=== PATIENT | male | born 1945 | race Caucasian/White ===

== ENCOUNTER 2024-05-22 07:18 | Emergency (ER) | payer MEDICARE, MEDICAID, SELFPAY ==
--- NOTE | ~2024-05-22 | XR_ITS ---
EXAMINATION: XR lumbar spine 2-3V DATE: 05/22/2024 08:34 INDICATION: Fall. TECHNIQUE: 3 views of lumbar spine were obtained. COMPARISON: None. FINDINGS: Bone alignment is normal. There is mild chronic anterior wedging of L1 vertebral body. Ther e is mildly decreased disc height at L1-L2, L2-L3, and L4-L5. There is multilevel severe facet joint osteoarthritis. IMPRESSION: 1. Mild lumbar spondylosis. Reviewed, dictated and finalized at location E. IMPRESSION: 1. Mild lumbar spondylosis.
--- NOTE | ~2024-05-22 | CT_ITS ---
EXAMINATION: CT brain wo con DATE: 05/22/2024 08:30 INDICATION: Headache. Minor head injury. TECHNIQUE: Computed tomography (CT) of the head was performed without intravenous contrast. The mA wa s adjusted according to patient size. Iterative reconstruction technique was employed. The dose-lengt h product was 681.00 mGy-cm. COMPARISON: None FINDINGS: There is no intracranial hemorrhage, acute infarction, or abnormal intracranial mass lesion . There is diffuse brain volume loss. There are scattered areas of low attenuation in the cerebral wh ite matter, which is within normal limits for the patient's age. The ventricles are normal in size. There are likely changes of ocular lens replacement surgeries. There is mucosal thickening in the par anasal sinuses. The mastoid air cells are normal. IMPRESSION: 1. Normal aging brain. Reviewed, dictated and finalized at location E. IMPRESSION: 1. Normal aging brain.
[2024-05-22 07:30] VITALS: BP 147/72; PULSE 72; RESP 16; TEMP 37.1; O2SAT 100
[2024-05-22 08:00] LABS: Basophils Percent Auto 0.1 % (0.2-1.2); Eosinophils Absolute Auto 0.1 K/mm3 (0-0.3); Eosinophils Percent Auto 0.7 % (0-4.4); Hematocrit 35.7 % (42.0-52.0); Hemoglobin 11.6 g/dL (14.0-18.0); Immature Granulocyte Absolute 0.02 K/mm3 (0.00-0.031); Immature Granulocyte Percent A 0.3 % (0-0.5); Lymphocytes Absolute Auto 1.08 K/mm3 (0.9-3.2); Lymphocytes Percent Auto 14.5 % (18.3-44.2); Mean Corpuscular HGB Conc 32.5 g/dl (32-36); Mean Corpuscular Hemoglobin 29.1 pg (26-34); Mean Corpuscular Volume 89.5 fl (80-100); Monocytes Absolute Auto 0.6 K/mm3 (0.1-0.6); Monocytes Percent Auto 8.3 % (2.6-8.5); Neutrophils Absolute Auto 5.7 K/mm3 (1.3-6.7); Neutrophils Percent Auto 76.1 % (45.5-73.1); Platelet Count Result 215 k/mm3 (150-375); Red Blood Count 3.99 M/mm3 (4.6-6.20); Red Cell Distribution Width 13.6 % (11.5-14.5); White Blood Count 7.4 K/mm3 (4.5-10.0)
[2024-05-22 08:01] VITALS: BP 123/60; PULSE 72; RESP 14; TEMP 36.6; O2SAT 99
[2024-05-22 08:17] LABS: Add Urine Microscopic? YES; Appearance Urine Clear (Clear); Bacteria Urine None Seen /hpf; Bilirubin Urine Negative (Negative); Blood Urine Negative (Negative); Color Urine Yellow (Yellow); Glucose Urine UA Negative (Negative); Ketones Urine 2+ mg/dL (Negative); Leukocyte Esterase Ur Negative LEU/UL (Negative); Need Manual Microscopic Reviewed; Nitrate Urine Negative (Negative); Non Pathogenic Casts 0-2; Protein Urine Trace mg/dL (Negative); Specific Grav Ur 1.021 (1.001-1.035); Squamous Epithelial Cell Urine None Seen /hpf (Few); WBC Urine 0-5 /hpf (0-3); pH Urine 8.5 (5.0-9.0)
--- NOTE | 2024-05-22 08:19 | ED.GENADULT ---
HPI - General Adult General Chief complaint: Back Pain/Injury Stated complaint: head/back pain Time Seen by Provider: 05/22/24 07:36 History of Present Illness HPI narrative: Patient is a 79-year-old male with history of dementia who presents to the ER from the [facility] with reports of headache and back pain. No witnessed trauma. Patient is unsure where he has discomfort but reports he does have low back pain when sitting forward. He says he fell and thinks he may have hit his head however he cannot provide any additional history sweats unsure if this actually occurred. There is no obvious deformity lower extremities. No reproducible discomfort lower extremities or upper extremities. No head trauma. Patient has mild discomfort with palpation low back. Related Data Home Medications Medication Instructions Recorded Confirmed acetaminophen 325 mg tablet 650 mg PO Q6H PRN Pain 05/22/24 aspirin 81 mg chewable tablet 81 mg PO QAM 05/22/24 atorvastatin 40 mg tablet 40 mg PO HS 05/22/24 bisacodyl 10 mg rectal suppository 10 mg RECTAL PRN PRN Constipation 05/22/24 carvedilol 12.5 mg tablet 12.5 mg PO BID 05/22/24 cetirizine 10 mg tablet (Zyrtec) 10 mg PO DAILY 05/22/24 coenzyme Q10 100 mg capsule 100 mg PO QAM 05/22/24 folic acid 800 mcg tablet 0.8 mg PO DAILY 05/22/24 lorazepam 0.5 mg tablet 0.5 mg PO BID 05/22/24 lorazepam 0.5 mg tablet 0.5 mg PO BID PRN Anxiety 05/22/24 melatonin 5 mg tablet 5 mg PO HS 05/22/24 omeprazole 20 mg capsule,delayed 20 mg PO QAM 05/22/24 release polyethylene glycol 3350 17 17 g PO QAM 05/22/24 gram/dose oral powder quetiapine 100 mg tablet 100 mg PO QHS 05/22/24 quetiapine 50 mg tablet 50 mg PO QAM 05/22/24 rivastigmine 13.3 mg/24 hour 1 patch transdermal DAILY 05/22/24 transdermal patch sennosides 8.6 mg-docusate sodium 1 tab-cap PO BID 05/22/24 50 mg tablet (Senna-S) sodium phosphates 19 gram-7 118 ml RECTAL PRN PRN Constipation 07/07/24 gram/118 mL enema (Fleet Enema) Allergies Allergy/AdvReac Type Severity Reaction Status Date / Time No Known Allergies Allergy Verified 05/22/24 07:43 Review of Systems Review of Systems: ROS unobtainable: Yes unobtainable due to mental status PMFSH Past Medical History Medical History (Updated 05/22/24 @ 10:50 by Jn Monreal MD) Dementia GERD (gastroesophageal reflux disease) Hyperlipidemia Hypertension Surgical History Surgical History (Updated 05/22/24 @ 08:22 by Jn Monreal MD) Surgical history unknown Exam Narrative: GENERAL: Well-appearing, well-nourished, and in no acute distress. HEAD: Normocephalic, atraumatic. ENT: Mucous membranes moist. NECK: Supple. No midline tenderness. CHEST: Clear to auscultation. No respiratory distress. HEART: Regular rate and rhythm. Normal peripheral pulses. ABDOMEN: Soft, nontender, nondistended. BACK: Mild paraspinal low back tenderness 4 without midline tenderness the T/L spine. No abrasions/bruises. EXTREMITIES: Normal range of motion. No edema. SKIN: Warm, dry, no rash. NEURO: Alert and oriented to self and place.. PSYCH: Normal mood and affect. Course Course Emergency Course: No evidence of acute injury. Discharge back to facility. Vital Signs Vital signs: Vital Signs Temperature 98.7 F 05/22/24 07:30 Pulse Rate 72 05/22/24 07:30 Respiratory Rate 16 05/22/24 07:30 Blood Pressure 147/72 H 05/22/24 07:30 Pulse Oximetry 100 05/22/24 07:30 Oxygen Delivery Room Air 05/22/24 07:30 Temperature 97.9 F 05/22/24 09:01 Pulse Rate 66 05/22/24 09:01 Respiratory Rate 14 05/22/24 09:01 Blood Pressure 123/59 L 05/22/24 09:01 Pulse Oximetry 99 05/22/24 09:01 Oxygen Delivery Room Air 05/22/24 07:30 Medical Decision Making Vital Signs Vital Signs: Vital Signs Temperature 98.7 F 05/22/24 07:30 Pulse Rate 72 05/22/24 07:30 Respiratory Rate 16 05/22/24 07:30 Blood Pressure 1
[2024-05-22 08:34] VITALS: BP 126/63; PULSE 69; RESP 14; O2SAT 98
[2024-05-22 09:01] VITALS: BP 123/59; PULSE 66; RESP 14; TEMP 36.6; O2SAT 99
[2024-05-22 09:14] LABS: Alanine Aminotransferase 14 U/L (6-50); Albumin Level 3.7 g/dL (3.5-5.1); Alkaline Phosphatase 60 U/L (38-126); Anion Gap 7 mmol/L (4-12); Aspartate Amino Transferase 20 U/L (17-59); Bilirubin,Total 1.1 mg/dL (0.2-1.3); Blood Urea Nitrogen 26 mg/dL (9-20); Calcium 8.7 mg/dL (8.4-10.2); Carbon Dioxide 29 mmol/L (22-30); Chloride 105 mmol/L (98-107); Estimated CRCL calculation 65 ml/min; Estimated Glomerular Filt Rate > 60; Glucose 108 mg/dL (65-110); Sodium 141 mmol/L (137-145)
[2024-05-22 09:31] VITALS: BP 118/64; PULSE 72; RESP 14; TEMP 36.6; O2SAT 100
[2024-05-22 10:31] VITALS: BP 133/57; PULSE 67; RESP 12; TEMP 36.4; O2SAT 100
== END 2024-05-22 12:39 | disposition home or self-care (01) ==
PROVIDERS: Emergency Provider Emergency Medicine; PCP Internal Medicine
DX: M54.50 Low back pain, unspecified (principal); F03.90 Unspecified dementia, unspecified severity, without behavioral disturbance, psychotic disturbance, mood disturbance, and anxiety; I10 Essential (primary) hypertension; E78.5 Hyperlipidemia, unspecified; K21.9 Gastro-esophageal reflux disease without esophagitis; Z79.82 Long term (current) use of aspirin; Z79.899 Other long term (current) drug therapy; M47.816 Spondylosis without myelopathy or radiculopathy, lumbar region
CPT/HCPCS: 36415; 70450; 72100; 80053; 81001; 85025; 99284

== ENCOUNTER 2024-09-06 01:35 | Emergency (ER) | payer OTHER, SELFPAY ==
--- NOTE | ~2024-09-06 | CT_ITS ---
EXAMINATION: CT brain wo con DATE: 09/06/2024 02:24 INDICATION: Head injury. TECHNIQUE: Computed tomography (CT) of the head was performed without intravenous contrast. The mA wa s adjusted according to patient size. Iterative reconstruction technique was employed. The dose-lengt h product was 1740.33 mGy-cm. COMPARISON: Head CT 05/22/2024 FINDINGS: There is no intracranial hemorrhage, acute infarction, or abnormal intracranial mass lesion . There are scattered areas of low attenuation in the cerebral white matter, which is within normal l imits for the patient's age. The ventricles are normal in size. There are likely changes of ocular le ns replacement surgeries. There is mucosal thickening in the paranasal sinuses. The mastoid air cells are normal. There is cerumen in the external auditory canals. IMPRESSION: 1. Normal aging brain. Reviewed, dictated and finalized at location A. IMPRESSION: 1. Normal aging brain.
[2024-09-06 01:36] VITALS: BP 129/97; PULSE 78; RESP 14; TEMP 36.3; O2SAT 97
[2024-09-06 01:51] VITALS: PULSE 78; RESP 18
[2024-09-06 02:23] VITALS: PULSE 77; RESP 17; O2SAT 100
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
[2024-09-06 02:42] VITALS: PULSE 72; RESP 13
[2024-09-06 02:45] VITALS: PULSE 74; RESP 13
[2024-09-06 03:13] VITALS: BP 127/76; PULSE 76; RESP 16; TEMP 36.6; O2SAT 98
--- NOTE | 2024-09-06 03:52 | PC.NURSE ---
report to [facility]
== END 2024-09-06 03:52 ==
LOC: ANHED 02:42
PROVIDERS: Emergency Provider Emergency Medicine; PCP Internal Medicine
DX: S09.90XA Unspecified injury of head, initial encounter (principal); F03.90 Unspecified dementia, unspecified severity, without behavioral disturbance, psychotic disturbance, mood disturbance, and anxiety; I10 Essential (primary) hypertension; E78.5 Hyperlipidemia, unspecified; K21.9 Gastro-esophageal reflux disease without esophagitis; W19.XXXA Unspecified fall, initial encounter
CPT/HCPCS: 70450; 99284

== ENCOUNTER 2024-11-11 10:30 | Emergency (ER) | payer OTHER, SELFPAY ==
--- NOTE | ~2024-11-11 | CT_ITS ---
EXAMINATION: CT brain wo con DATE: 11/11/2024 13:16 INDICATION: Head injury. TECHNIQUE: Computed tomography (CT) of the head was performed without intravenous contrast. The mA wa s adjusted according to patient size. Iterative reconstruction technique was employed. The dose-lengt h product was 681.00 mGy-cm. COMPARISON: Head CT 09/06/2024 FINDINGS: There are scattered areas of low attenuation in the cerebral white matter, which is within normal limits for the patient's age. There is no intracranial hemorrhage, acute infarction, or abnorm al intracranial mass lesion. The ventricles are normal in size. There is mild mucosal thickening in t he paranasal sinuses. There are likely changes of ocular lens replacement surgeries. The mastoid air cells are normal. There is cerumen in the external auditory canals. There is right posterior scalp so ft tissue swelling. IMPRESSION: 1. Normal aging brain. Reviewed, dictated and finalized at location A. ORESIST PRINTER IMPRESSION: 1. Normal aging brain.
--- NOTE | ~2024-11-11 | CT_ITS ---
EXAMINATION: CT cervical spine wo con DATE: 11/11/2024 13:17 INDICATION: Neck injury. TECHNIQUE: Computed tomography (CT) of the cervical spine was performed without intravenous contrast. Automated exposure control and iterative reconstruction technique were employed. The dose-length pro duct was 417.26 mGy-cm. COMPARISON: None FINDINGS: There is 10 degrees levoscoliosis of cervical spine. There is 2 mm retrolisthesis of C4 on C5 and C5 on C6. Vertebral body heights are normal. There is a hemangioma in T2 vertebral body. There is mildly decreased disc height at C2-C3, severely decreased disc height from C3-C4 through C5-C6, a nd mildly decreased disc height at C6-C7. The osseous central spinal canal developmentally small. The following disc levels are specifically discussed: C2-C3: There is mild right and severe left uncovertebral joint osteoarthritis. There is mild bilatera l facet joint osteoarthritis. There is mild left neural foraminal stenosis. There is mild central can al stenosis. C3-C4: There is severe bilateral uncovertebral joint osteoarthritis. There is moderate right and mild left facet joint osteoarthritis. There is mild bilateral neural foraminal stenosis. There is mild ce ntral canal stenosis. C4-C5: There is severe bilateral uncovertebral joint osteoarthritis. There is moderate right and mild left facet joint osteoarthritis. There is moderate bilateral neural foraminal stenosis. There is mod erate central canal stenosis. C5-C6: There is severe bilateral uncovertebral joint osteoarthritis. There is moderate bilateral face t joint osteoarthritis. There is moderate bilateral neural foraminal stenosis. There is moderate cent ral canal stenosis. C6-C7: There is severe right and mild left uncovertebral joint osteoarthritis. There is severe bilate ral facet joint osteoarthritis. There is moderate right and mild left neural foraminal stenosis. Ther e is mild central canal stenosis. C7-T1: There is no uncovertebral joint osteoarthritis. There is severe bilateral facet joint osteoart hritis. There is mild bilateral neural foraminal stenosis. There is mild central canal stenosis. IMPRESSION: 1. No fracture. 2. Severe cervical spondylosis. Reviewed, dictated and finalized at location A. NETWORK ENGINEER
--- NOTE | ~2024-11-11 | CT_ITS ---
EXAMINATION: CT thoracic lumbar wo con DATE: 11/11/2024 13:20 INDICATION: Back injury. TECHNIQUE: Computed tomography (CT) of the thoracic and lumbar spine was performed without intravenou s contrast. Automated exposure control and iterative reconstruction technique were employed. The dose -length product was 1481.43 mGy-cm. COMPARISON: None FINDINGS: CT THORACIC SPINE: There is a 4 mm nodule in right lung upper lobe, likely benign. Calcified mediasti nal lymph nodes are consistent with old granulomatous disease. There is kyphosis of thoracic spine. T here is 11 degrees dextroscoliosis of thoracic spine. There is mild chronic anterior wedging of T6-T1 2 vertebral bodies. There is a hemangioma in T2 vertebral body. There are bridging endplate osteophyt es from T4 to T12, consistent with diffuse idiopathic skeletal hyperostosis (DISH). There is mildly d ecreased disc height at T1-T2 and moderately decreased disc height at T3-T4. There is moderately to m oderately decreased disc height from T4-T5 through T11-T12. There is multilevel mild facet joint oste oarthritis. On the right, there is mild neural foraminal stenosis at T3-T4. No central canal stenosis . CT LUMBAR SPINE: Calcifications in the spleen are consistent with old granulomatous disease. There is 3 mm anterolisthesis of L4 on L5. There is mild chronic anterior wedging of L1 vertebral body. There is moderately decreased disc height at L1-L2 and L2-L3 and mildly decreased disc height at L3-L4 and L4-L5. The following disc levels are specifically discussed: L1-L2: The disc is bulging. There is mild bilateral facet joint osteoarthritis. There is mild bilater al neural foraminal stenosis. There is mild central canal stenosis. L2-L3: The disc is bulging. There is moderate bilateral facet joint osteoarthritis. There is moderate bilateral neural foraminal stenosis. There is mild central canal stenosis. L3-L4: The disc is bulging. There is severe right and moderate left facet joint osteoarthritis. There is mild bilateral neural foraminal stenosis. There is mild central canal stenosis. L4-L5: The disc is bulging. There is severe bilateral facet joint osteoarthritis. There is moderate r ight and mild left neural foraminal stenosis. There is mild central canal stenosis. L5-S1: The disc is bulging. There is severe bilateral facet joint osteoarthritis. There is mild bilat eral neural foraminal stenosis. There is mild central canal stenosis. IMPRESSION: 1. No fracture. 2. Moderate thoracic and lumbar spondylosis. 3. DISH. 4. Thoracic dextroscoliosis and kyphosis. Reviewed, dictated and finalized at location A. SCIENCE TECHNICIAN
--- NOTE | ~2024-11-11 | CT_ITS ---
EXAMINATION: CT abdomen pelvis w con DATE: 11/11/2024 13:26 INDICATION: Abdominal pain. TECHNIQUE: Computed tomography (CT) of the abdomen and pelvis was performed with 100 mL Omnipaque 350 intravenous contrast. Automated exposure control and iterative reconstruction technique were employe d. The dose-length product was 630.94 mGy-cm. COMPARISON: None. FINDINGS: The visualized portions of the lung bases demonstrate mild atelectasis. A calcified right l mary nodule is consistent with old granulomatous disease. No pleural effusion. The heart size is matilde l. There are coronary artery calcifications. There are calcifications of the aortic valve. No pericar dial effusion. There is a small sliding hiatal hernia. The liver is normal. The gallbladder is absent . Calcifications in the spleen are consistent with old granulomatous disease. The pancreas and adrena l glands are normal. There are cysts in the kidneys measuring up to 17 mm on the left. The prostate i s mildly enlarged. There are no dilated loops of bowel. The appendix is not visualized. There is calc ified atherosclerosis of the aorta and many of the other arteries. There are no pathologically enlarg ed lymph nodes. There is no free intraperitoneal fluid. There is a left inguinal hernia containing fa t. There is moderate lumbar spondylosis. IMPRESSION: 1. Left inguinal hernia containing fat. 2. Small sliding hiatal hernia. Reviewed, dictated and finalized at location A. [facility] [facility]
[2024-11-11 11:00] VITALS: BP 169/82; PULSE 70; RESP 16; TEMP 36.5; O2SAT 100
[2024-11-11 11:15] VITALS: BP 147/92; PULSE 78; RESP 22; O2SAT 100
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
[2024-11-11 12:46] VITALS: BP 156/62; PULSE 72; RESP 17; O2SAT 99
[2024-11-11 13:20] LABS: Estimated CRCL calculation 58 ml/min; Estimated Glomerular Filt Rate > 60
[2024-11-11 15:43] VITALS: BP 179/84; PULSE 72; RESP 13; O2SAT 100
--- NOTE | 2024-11-11 15:56 | PC.NURSE ---
gave report and update to JOSE CARLOS Moreno @[phone]. all questions answered.
[2024-11-11 17:30] VITALS: BP 170/92; PULSE 74; RESP 15; O2SAT 99
[2024-11-11 19:31] VITALS: BP 168/89; PULSE 71; RESP 19; TEMP 36.6; O2SAT 98
== END 2024-11-11 19:30 ==
PROVIDERS: Emergency Provider Emergency Medicine; PCP Internal Medicine
DX: R10.9 Unspecified abdominal pain (principal); S09.90XA Unspecified injury of head, initial encounter; W03.XXXA Other fall on same level due to collision with another person, initial encounter; Z79.82 Long term (current) use of aspirin; F03.90 Unspecified dementia, unspecified severity, without behavioral disturbance, psychotic disturbance, mood disturbance, and anxiety; K21.9 Gastro-esophageal reflux disease without esophagitis; E78.5 Hyperlipidemia, unspecified; I10 Essential (primary) hypertension
CPT/HCPCS: 70450; 72125; 72128; 72131; 74177; 99284; Q9967

== ENCOUNTER 2025-05-01 02:21 | Emergency (ER) | payer MEDICARE, MEDICAID, SELFPAY ==
--- NOTE | ~2025-05-01 | XR_ITS ---
Left elbow Technique: AP, oblique, and lateral views were obtained. Clinical History: Pain Findings: No acute fracture or dislocation is seen. Osseous alignment is anatomic. Joint spaces are p reserved. There is no displacement of the fat pads, and soft tissues are unremarkable. Impression: Unremarkable radiographs. Reviewed, dictated and finalized at location . Impression: Unremarkable radiographs.
--- NOTE | ~2025-05-01 | CT_ITS ---
CT head without contrast Indication: Status post fall COMPARISON: 11/11/2024 Technique: Serial scans were obtained through the brain without the administration of contrast. Dose reduction technique was used on this scan by utilizing automated exposure control and iterative recon struction technique. The dose-length product (DLP) was 681.00 mGy-cm. Findings: There is no evidence of intracranial hemorrhage, mass lesion, or acute infarct. The ventri cles and subarachnoid spaces are dilated, consistent with moderate atrophy. There is no evidence of edema, mass effect or midline shift. The visualized paranasal sinuses and mastoid air cells are cl ear. Impression: No intracranial hemorrhage, mass, or acute infarct. Moderate generalized atrophy. Reviewed, dictated and finalized at location . Impression: No intracranial hemorrhage, mass, or acute infarct. Moderate generalized atrophy.
--- NOTE | ~2025-05-01 | CT_ITS ---
Noncontrast CT scan of the cervical spine Technique: Multiple contiguous axial [address] images of the cervical spine were obtained and rec onstructed in 2D sagittal and coronal planes on the acquisition scanner. Dose reduction technique was used on this scan by utilizing automated exposure control, adjustment of the mA and/or kV according to patient size. The dose-length product (DLP) was 221.90 mGy-cm. Clinical History: Pain COMPARISON: 11/11/2024 Findings: No fractures or dislocations. Stable osseous alignment from prior exam. There is moderate degenerative distended and C3-C6. Stable facet joint degenerative changes in the cervical spine. Ther e is bilateral neural foraminal narrowing at C3-C4, C4-C5, C5-C6, with right neural foraminal narrowi ng at C6-C7. No prevertebral soft tissue swelling. Impression: No fracture or subluxation of the cervical spine. Stable degenerative spondylosis, as above. Reviewed, dictated and finalized at [facility]. Impression: No fracture or subluxation of the cervical spine. Stable degenerative spondylosis, as above.
[2025-05-01 02:21] VITALS: BP 143/56; PULSE 68; RESP 16; TEMP 36.7; O2SAT 99
--- NOTE | 2025-05-01 03:55 | ED.FALL ---
HPI - Fall General Chief Complaint: Fall Stated Complaint: fall Time Seen by Provider: 05/01/25 02:27 History of Present Illness HPI Narrative: Patient presents here after an unwitnessed fall; he denies any complaints, he was found have a skin tear to the left elbow. Related Data Home Medications ?Medication ?Instructions ?Recorded ?Confirmed ?Last Taken ?Type acetaminophen 325 mg tablet 650 mg PO Q6H PRN Pain 05/22/24 Unknown History aspirin 81 mg chewable tablet 81 mg PO QAM 05/22/24 Unknown History atorvastatin 40 mg tablet 40 mg PO HS 05/22/24 Unknown History bisacodyl 10 mg rectal suppository 10 mg RECTAL PRN PRN Constipation 05/22/24 Unknown History carvedilol 12.5 mg tablet 12.5 mg PO BID 05/22/24 Unknown History cetirizine 10 mg tablet (Zyrtec) 10 mg PO DAILY 05/22/24 Unknown History coenzyme Q10 100 mg capsule 100 mg PO QAM 05/22/24 Unknown History folic acid 800 mcg tablet 0.8 mg PO DAILY 05/22/24 Unknown History lorazepam 0.5 mg tablet 0.5 mg PO BID 05/22/24 Unknown History lorazepam 0.5 mg tablet 0.5 mg PO BID PRN Anxiety 05/22/24 Unknown History melatonin 5 mg tablet 5 mg PO HS 05/22/24 Unknown History omeprazole 20 mg capsule,delayed 20 mg PO QAM 05/22/24 Unknown History release polyethylene glycol 3350 17 17 g PO QAM 05/22/24 Unknown History gram/dose oral powder quetiapine 100 mg tablet 100 mg PO QHS 05/22/24 Unknown History quetiapine 50 mg tablet 50 mg PO QAM 05/22/24 Unknown History rivastigmine 13.3 mg/24 hour 1 patch transdermal DAILY 05/22/24 Unknown History transdermal patch sennosides 8.6 mg-docusate sodium 1 tab-cap PO BID 05/22/24 Unknown History 50 mg tablet (Senna-S) sodium phosphates 19 gram-7 118 ml RECTAL PRN PRN Constipation 05/22/24 Unknown History gram/118 mL enema (Fleet Enema) Allergies Allergy/AdvReac Type Severity Reaction Status Date / Time No Known Allergies Allergy Verified 05/01/25 02:36 Review of Systems Review of Systems: All systems reviewed & are unremarkable except as noted in HPI and below PMFSH Past Medical History Medical History Dementia GERD (gastroesophageal reflux disease) Hyperlipidemia Hypertension Surgical History Surgical History Surgical history unknown Exam Narrative: EXAMINATION OF ORGAN SYSTEMS/BODY AREAS: Constitutional: Vital signs per nursing GENERAL:[No acute distress, non-toxic appearing.] HEAD: Normal with no signs of head trauma. EYES: EOMI, conjunctiva normal ENT: Hearing grossly intact LUNGS: Nonlabored breathing. HEART: [Regular rate and rhythm] ABD: [Soft], [nontender to palpation] EXT: Normal range of motion SKIN: Contusion to left elbow with 1 cm skin tear NEURO: [Alert. No gross focal sensory or strength deficits.] PSYCH: Normal affect Course Vital Signs Vital signs: Vital Signs Temperature 98.1 F 05/01/25 02:21 Pulse Rate 68 05/01/25 02:21 Respiratory Rate 16 05/01/25 02:21 Blood Pressure 143/56 H 05/01/25 02:21 Pulse Oximetry 99 05/01/25 02:21 Oxygen Delivery Room Air 05/01/25 02:21 Temperature 98.1 F 05/01/25 02:21 Pulse Rate 68 05/01/25 02:21 Respiratory Rate 16 05/01/25 02:21 Blood Pressure 143/56 H 05/01/25 02:21 Pulse Oximetry 99 05/01/25 02:21 Oxygen Delivery Room Air 05/01/25 02:21 MDM - Fall MDM Narrative Medical decision making narrative: Patient presents with fall, was found on the ground, he cannot tell me anything more about this, but he denies any complaints. I did palpate all extremities and did not note any obvious deformity or tenderness, though he does have a contusion to his left elbow with a skin tear. I did clean the cut and applied a bandage, of 0 x-ray on my independent interpretation does not show any obvious fracture, CT head and C-spine thankfully are unremarkable for acute abnormality. Patient tetanus is updated, at this time he became extremely belligerent and uncooperative, told multiple people that he was going to beat our ass and called us butch blanco I did see that he is prescribed quetiapine, and do feel he would benefit from a dose of Zyprexa here to help calm him down. On re-evaluation he does appear more comfortable. Will be discharged in stable condition. Discharge Plan Discharge Clinical Impression: Fall, Contusion of left lower arm Patient Disposition: [place] Nursing Home/Asst Living Condition: Stable Instructions: Fall Prevention for Older Adults (ED), Contusion in Adults (ED) Additional Instructions: Please follow up with your doctor; you can always return for any further issues. Patient Language: Japanese Prescriptions: No Action atorvastatin 40 mg Tablet 40 mg PO HS acetaminophen 325 mg Tablet 650 mg PO Q6H PRN (Reason: Pain) carvedilol 12.5 mg tablet 12.5 mg PO BID quetiapine 100 mg tablet 100 mg PO QHS lorazepam 0.5 mg tablet 0.5 mg PO BID lorazepam 0.5 mg tablet 0.5 mg PO BID PRN (Reason: Anxiety) bisacodyl 10 mg suppository 10 mg RECTAL PRN PRN (Reason: Constipation) Fleet Enema 19-7 gram/118 mL enema 118 ml RECTAL PRN PRN (Reason: Constipation) omeprazole 20 mg Capsule,Delayed Release(Dr/Ec) 20 mg PO QAM aspirin 81 mg tablet,chewable 81 mg PO QAM polyethylene glycol 3350 17 gram/dose powder 17 g PO QAM folic acid 800 mcg Tablet 0.8 mg PO DAILY coenzyme Q10 100 mg capsule 100 mg PO QAM quetiapine 50 mg tablet 50 mg PO QAM melatonin 5 mg Tablet 5 mg PO HS rivastigmine 13.3 mg/24 hour Patch 24 Hour 1 patch TRANSDERMAL DAILY cetirizine [Zyrtec] 10 mg Tablet 10 mg PO DAILY sennosides-docusate sodium [Senna-S] 8.6-50 mg Tablet 1 tab-cap PO BID Follow-up/Referrals: Sima,MD Elpidio [Primary Care Provider] -
[2025-05-01] MEDS: OLANZapine 5 MG, WATER, STERILE FOR INJECTION 2.1 ML IM (04:48)
[2025-05-01] MEDS: TETANUS,DIPHTHERIA,AC PERTUSSIS ADULT (0.5 ML) BOOSTRIX IM (04:51)
--- NOTE | 2025-05-01 05:13 | PC.NURSE ---
0430 Patient bed alarm going off and patient sitting up in bed. Patient was able to be redirected and situated back on the stretcher. Patient starting to get aggressive with staff. Patient starting to yell. 0440 patient sitting on edge of bed, yelling and flailing arms. Patient was being verbally aggressive with staff and ERP. ERP placed orders and meds given with assistance of security. Patient situated back on stretcher with bed alarm under patient. Call light within reach.
--- NOTE | 2025-05-01 05:44 | PC.NURSE ---
Attempted to call report to [place] at [phone], no answer and unable to leave a message. Will attempt again.
[2025-05-01 05:51] VITALS: BP 124/65; PULSE 64; RESP 17; O2SAT 97
--- NOTE | 2025-05-01 06:33 | PC.NURSE ---
Patients brief changed and bed linen changed. Patient was uncooperative with repeat VS at this time. Patient waiting for EMS to transport him back to the [place].
--- NOTE | 2025-05-01 06:36 | PC.NURSE ---
0634 Called report to ANDREA Ramirez at [facility]. Patient waiting for transport back to the [place].
[2025-05-01 06:39] VITALS: BP 166/64; PULSE 62; RESP 17; O2SAT 97
[2025-05-01 06:41] VITALS: BP 166/64; PULSE 62; RESP 18; O2SAT 97
--- NOTE | 2025-05-01 07:18 | PC.NURSE ---
Sleeping. Awaiting transport to [facility].
--- NOTE | 2025-05-01 08:53 | PC.NURSE ---
To [facility] via [facility]. Condition stable.
== END 2025-05-01 08:53 ==
PROVIDERS: Emergency Provider Emergency Medicine; PCP Internal Medicine
DX: S51.012A Laceration without foreign body of left elbow, initial encounter (principal); Z23 Encounter for immunization; F03.90 Unspecified dementia, unspecified severity, without behavioral disturbance, psychotic disturbance, mood disturbance, and anxiety; E78.5 Hyperlipidemia, unspecified; I10 Essential (primary) hypertension; K21.9 Gastro-esophageal reflux disease without esophagitis; W19.XXXA Unspecified fall, initial encounter
CPT/HCPCS: 70450; 72125; 73080; 90471; 90715; 99284; J2359